=== PATIENT | male | born 1970 ===

== ENCOUNTER 2017-07-13 14:44 | Outpatient (CLI) | payer OTHER ==
[~2017-07-13] VITALS: Ht 182.9 cm; Wt 104.3 kg
== END 2017-07-13 15:10 | disposition home or self-care (01) ==
LOC: OFIC 805 14:44
DX: G47.33 Obstructive sleep apnea (adult) (pediatric) (principal); J00 Acute nasopharyngitis [common cold]; J34.2 Deviated nasal septum

== ENCOUNTER 2017-08-17 10:45 | Outpatient (CLI) | payer OTHER ==
[~2017-08-17] VITALS: Ht 182.9 cm; Wt 104.3 kg
== END 2017-08-17 11:00 | disposition home or self-care (01) ==
LOC: OFIC 805 10:45
DX: J30.89 Other allergic rhinitis (principal); J34.2 Deviated nasal septum; R42 Dizziness and giddiness; C44.292 Other specified malignant neoplasm of skin of right ear and external auricular canal

== ENCOUNTER 2017-09-28 12:53 | Outpatient (CLI) | payer OTHER ==
[~2017-09-28] VITALS: Ht 182.9 cm; Wt 104.3 kg
== END 2017-09-28 13:15 | disposition home or self-care (01) ==
LOC: OFIC 805 12:53
DX: G47.33 Obstructive sleep apnea (adult) (pediatric) (principal); J30.89 Other allergic rhinitis; J34.2 Deviated nasal septum; R42 Dizziness and giddiness